=== PATIENT | male | born 1955 | race Caucasian/White ===

== ENCOUNTER 2024-09-30 10:30 | Inpatient (IN) | payer MEDICARE, BC, OTHER, SELFPAY ==
[2024-09-29] VITALS (10 sets, daily range): BP systolic 97–172; BP diastolic 67–128; BMI 23.7; BMI 25.4
--- NOTE | 2024-09-29 13:36 | ED.GENMED ---
History of Present Illness
General
Chief Complaint: Dizziness
Source: patient and spouse
Exam Limitations: none
Time Seen by Provider: 09/29/24 13:14
Nursing documentation reviewed up to this point in time: agreed with
History of Present Illness
History of Present Illness:
Note:
CHIEF COMPLAINT(S)
Frequent falls and lightheadedness
HISTORY OF PRESENT ILLNESS
The patient is a 69-year-old male with a history of Parkinsons disease who presented after experiencing a fall this morning. The patient reports feeling lightheaded at the time of the fall and indicated that this has been a recurring issue, falling
approximately every other day for the past two to three weeks. He describes episodes of lightheadedness upon standing, noting similar episodes of dizziness when he gets up. The spouse reports the patient fell last night and was found this morning on
the floor with blood around, likely from tripping while lightheaded. No chest pain or difficulty in breathing was noted during these episodes. The patient is on medication for Parkinsons disease, including carbidopa/levodopa, as well as bupropion
and escitalopram for emotional symptoms that have recently been exacerbated.
According to the spouse, the patient was newly diagnosed with high cholesterol and recently consulted his primary care provider. The spouse reports discussions with both a primary care physician and a neurologist who mentioned that his symptoms may
be related to blood pressure changes possibly due to his medication regimen. The family also indicated recent evaluations for an elevated prostate-specific antigen level, although this is considered an outpatient issue.
ADDITIONAL HISTORY OBTAINED FROM SOURCES OTHER THAN THE PATIENT
Per the spouse: The patient has been experiencing lightheadedness for the past few weeks, falling frequently, and has recently had emotional stress leading to a new prescription for escitalopram and bupropion. She reported that he has been managing
these conditions with his current medication regime.
CHRONIC MEDICAL CONDITIONS SIGNIFICANTLY AFFECTING CARE
- Parkinsons Disease
- Newly diagnosed hyperlipidemia
SOCIAL HISTORY
The patient is a retired [employer].
MEDICATIONS
- Carbidopa/Levodopa for Parkinsons Disease
- Bupropion for emotional symptoms
- Escitalopram for emotional symptoms
PHYSICAL EXAM
- General: Abrasion on the right eyebrow
- Head: No cervical spine tenderness observed
- Respiratory: Clear lung sounds bilaterally
- Cardiovascular: No chest wall tenderness noted
- Abdomen: Soft, non-tender, normal bowel sounds
- Neurological: Cranial nerves II through XII intact, full range of motion and normal muscle strength in all extremities
- Integumentary: Abrasion on the left upper buttock, indicative of trauma
PLAN
- Initiate blood tests to assess electrolyte levels and other potential contributing factors
- Conduct a CT scan of the head to assess for any intracranial injury
- Continuous monitoring of blood pressure given lightheadedness and falls
- Evaluate and ensure current medication regimen does not exacerbate symptoms
- Follow-up with the neurologist and primary care physician as needed
DIFFERENTIAL DIAGNOSIS
The Differential Diagnosis includes, in no particular order and is not limited to:
1. Orthostatic hypotension
2. Adverse effects of medications
3. Vestibular dysfunction
4. Cardiac arrhythmia
5. Syncope
6. Cerebrovascular accident
7. Neuropathy related to Parkinsons Disease
8. Dehydration
9. Prostate complications affecting systemic health
10. Emotional or psychological factors contributing to physical symptoms
Phy Exam
Physical Exam
Physical Exam:
.
Course
Orders/Labs/Results
Orders:
Orders
09/29/24 Breakfast
Regular
At Your Request: Full Participation
09/29/24 12:31
Electrocardiogram (*1) Urgent
Reason for Study: Chest Pain
EKG- Treatment ONCE
09/29/24 13:15
Interrogate Pacemaker- Treatment ONCE
09/29/24 13:51
CT Head W/o Iv Contrast Urgent
Comment:
Reason For Exam: fall, hit head
Cardiac Monitoring- Treatment ONCE
IV Insert/Care/Rem.- Treatment PRN
09/29/24 13:58
Complete Blood Count/With Diff Urgent
Comprehensive Metabolic Panel Urgent
09/29/24 17:24
OT Consult [Ot Eval And Treat] Urgent
Pt Eval And Treat Urgent
Activity Level: With Assistance
09/29/24 17:34
Urinalysis Reflex To Culture Urgent
Date Specimen was Collected: 09/29/24
Time Specimen was Collected: 17:25
Urine Microscopic Reflex Cult Urgent
09/29/24 17:40
Admit/Transfer Patient As Directed
Co-Sign Provider:
Level of Care: Observation services
Assign to:: Medical/Surgical
Physician / Group: andreina cintron
Diagnosis: fraquent fall
PRN Pain Medication Management As Directed
May give lesser potent ordered pain med per pt: Yes
preference::
Protocol:: Medication orders for pain may be administered in a
manner that supports deferring to patient preference
when the pt is:
- Requesting an ordered lesser potent pain medication.
Least to most potent pain medications are defined
as: acetaminophen < NSAID < tramadol < opioids
(morphine, oxycodone, hydromorphone).
- Requesting a lesser dose of the same medication IF
ORDERED.
- Requesting a less intrusive route of administration
if both routes are prescribed by the provider (PO <
IV).
09/29/24 17:41
Code Status As Directed
Resuscitation Status: Full Code
09/29/24 19:07
Acetaminophen [Tylenol] 650 mg PO Q4HPRN PRN
Bisacodyl [Dulcolax] 10 mg RECTAL [id number] PRN
Docusate W/Senna [Senokot-S] 1 tablet PO BIDPRN PRN
Enoxaparin Sodium [Lovenox] 40 mg SC QPM
Polyethylene Glycol Powder [Miralax] 17 grams PO DAILYPRN PRN
09/29/24 19:07
Activity As Directed
Activity Level: As Tolerated
Orthostatic Vital Signs As Directed
Orthostatic VS Frequency: Daily
Vital Signs As Directed
Frequency: Per unit guidelines
DX Deep Vein Thrombosis Video Routine
09/29/24 20:00
Bupropion(24Hr)Extended Releas [WELLBUTRIN XL (24 hour extended release)] 150 mg PO BID
Flush (0.9% Sodium Chloride) [Flush (Nss)] See Dose Instructions IV PER PROTOCOL
Modafinil [Provigil] 100 mg PO QPM
09/29/24 22:00
Carbidopa/Levodopa Cr [Sinemet Cr 50/200 (Extended Release)] 1.5 tablet PO HS
cmkvzjhno-javzvbrx-eyzaiybpev See Dose Instructions PO TID@1000,1300,2200
09/30/24 08:00
Escitalopram Oxalate [Lexapro] 10 mg PO DAILY
Modafinil [Provigil] 200 mg PO DAILY
Modafinil [Provigil] 200 mg PO DAILY
09/30/24 10:28
Speech Therapy Eval & Treat Routine
09/30/24 10:29
Abdominal Binder As Directed
Teds [Anti-embolism (SAMARA) Hose] As Directed
Type: Thigh high
09/30/24 10:30
0.9% Sodium Chloride 500 ml [Nss] 500 ml IV BOLUS
09/30/24 15:00
Modafinil [Provigil] 100 mg PO DAILY@1500
Modafinil [Provigil] 200 mg PO DAILY
Abnormal Lab Results
09/29/24 09/29/24
13:58 17:34
RBC 4.41 L 10^6/uL
(4.70-6.10)
MCH 32.7 H pg
(27.0-31.0)
MPV 10.5 H fL
(7.4-10.4)
Absolute Neuts (auto) 7.1 H 10^3/uL
(1.4-6.5)
Absolute Monos (auto) 0.9 H 10^3/uL
(0.1-0.6)
Lymphocytes % 19.6 L %
(20.5-51.1)
Chloride 112 H mmol/L
(98-107)
BUN 35 H mg/dl
(9-20)
Glucose 128 H mg/dl
(70-99)
Alkaline Phosphatase 134 H U/L
(38-126)
Urine Ketones 1+ A
(Negative)
Ur Occult Blood Reflex 2+ A
(Negative)
Urine Bacteria (Reflex) Few A
(Negative)
Urine Albumin (Reflex) 1+ A
(Neg - Trace)
09/29/24 13:58
09/29/24 13:58
Vital Signs
Initial and Last Documented VS:
Initial Vital Signs
Temp Pulse Resp BP Pulse Ox
98.3 F 88 20 97/67 95
09/29/24 12:26 09/29/24 12:26 09/29/24 12:26 09/29/24 12:26 09/29/24 12:26
Last Documented Vital Signs
Temp Pulse Resp BP Pulse Ox
97.4 F 77 16 136/81 97
10/03/24 07:30 10/03/24 07:30 10/03/24 07:30 10/03/24 08:25 10/03/24 07:30
*Radiology
Radiology exam reviewed: radiology read reviewed (CT head no acute findings)
*Pulse Oximetry
Patient hypoxic: no (95 % Room air)
*EKG
Interpreted by ED Provider?: Yes
EKG Intrepretation Date: 09/29/24
EKG Intrepretation Time: 12:33
Interpretation: abnormal
Heart Rate: 86
Rate: normal
Rhythm: sinus
Minco: left axis deviation
Interval: normal interval
QRS Pattern: normal QRS
Ischemia: no ischemia
*Design Assembler Interpretation
Rate: normal
Interpretation: normal
Heart Rate: 85
Rhythm: sinus
*Critical Care Note
Total Time (30-74mins, 75-104mins- exclusive of procedures): Not Applicable
Patient Management
Social determinants of health affecting care: Living situation
Discussion with other providers: Hospitalist
Escalation/DeEscalation of care consider admission/obs:
Admit indicated
ED Attending Note
-
Portions of this chart may have been created with voice recognition software.� Occasional wrong word or��sound alike� substitutions may have occurred due to the inherent limitations of voice recognition software.
Discharge Plan
Departure
Patient Disposition: Admit
Date of Disposition: 09/29/24
Time of Disposition: 17:24
Admit to doctor: Leyda
Presentation/result/management discussed w/ accepting MD/DO: Hospitalist
Patient with high blood pressure during this ER visit?: Yes
Condition: Fair
Discharge Problem:
Weakness, Falls frequently
Interventions
Interventions:
*Risk Screen - Suicide Last Done: 09/29/24 12:26
*General Assessment Last Done: 09/29/24 12:26
*Neglect/Abuse Screening Last Done: 09/29/24 12:26
*ED- Fall Risk Assessment Last Done: 09/29/24 13:49
*ED COVID-19 Vaccine History Last Done: 09/29/24 19:39
*Nursing Disposition Last Done: 09/29/24 18:22
ED- Neurological Assessment Last Done: 09/29/24 13:49
ED- Cardiac Assessment Last Done: 09/29/24 13:49
ED Swallowing Screen Last Done: 09/29/24 13:49
Discharge Date and Time
Discharge Date/Time: 09/29/24 18:45
[2024-09-29 14:05] LABS: % Basophils 0.6 % (0-2); % Eosinophils 0.8 % (0-6); % Immature Granulocytes 0.3 % (0-0.5); % Lymphocytes 19.6 % (20.5-51.1); % Monocytes 8.7 % (1.7-9.3); Absolute Basophils 0.1 10^3/uL (0-0.2); Absolute Eosinophils 0.1 10^3/uL (0-0.7); Absolute Monocytes 0.9 10^3/uL (0.1-0.6); Absolute Neutrophils 7.1 10^3/uL (1.4-6.5); Hematocrit 40.5 % (39.0-52.0); Hemoglobin 14.4 g/dL (13.0-18.0); Mean Corp Hgb Conc. 35.6 g/dL (33.0-37.0); Mean Corpuscular Hgb 32.7 pg (27.0-31.0); Mean Corpuscular Volume 91.8 fL (80.0-94.0); Mean Platelet Volume 10.5 fL (7.4-10.4); Nucleated Red Blood Cells % 0 % (-); Platelet Count 207 10^3/uL (130-400); Red Blood Cell Count 4.41 10^6/uL (4.70-6.10); Red Cell Dist. Width 12.5 % (11.5-14.5); White Blood Cell Count 10.2 10^3/uL (4.8-10.8)
[2024-09-29 14:34] LABS: ALT (SGPT) < 10 U/L (0-50); AST (SGOT) 17 U/L (17-59); Albumin 3.8 g/dl (3.5-5.0); Alkaline Phosphatase 134 U/L (38-126); Blood Urea Nitrogen 35 mg/dl (9-20); Calcium 8.8 mg/dl (8.4-10.2); Carbon Dioxide 26 mmol/L (22-30); Chloride 112 mmol/L (98-107); Estimated Creatinine Clearance 57 ml/min; Glucose 128 mg/dl (70-99); Potassium 4.4 mmol/L (3.5-5.1); Sodium 142 mmol/L (135-145); Total Bilirubin 0.5 mg/dl (0.2-1.3); Total Protein 6.5 g/dl (6.3-8.2); eGFR > 60.00
--- NOTE | 2024-09-29 17:26 | HPS.HSE ---
Family Physician
-
Family Physician: Amy Medina MD
Chief Complaint
-
frquent falls
History of Present Illness
69-year-old male with a history of Parkinson disease, HLD, pre DM who presented after experiencing a fall overnight in the bathroom. he has fallen 4 times in the past three weeks. he gets up and takes two steps, he feels lightheaded and falls.
denied chest pain or difficulty in breathing. denied abdominal pain,n,v,d. denied dysuria or hematuria.
his contacted his neurology at [facility], who recommended to check his orthostatics at home.
Medical History
Past Medical History
Past Medical History: Reports Other
Additional Past Medical History:
Hyperlipidemia, Parkinson's, prediabetes
Past Surgical History: Reports Other
Additional Past Surgical History:
Right knee ACL repair, right thumb surgery
Social History
Tobacco: Non-smoker
Alcohol: None
Drug: None
Personal:
Living: With Family
Family History
Family History: Not pertinent
Allergies / Home Medications
Allergies reflects when Allergies were last updated in [facility].
Home Medications with original date entered in [facility]
Allergy/Medication List:
Allergies
Allergy/AdvReac Type Severity Reaction Status Date / Time
No Known Allergies Allergy Verified 09/29/24 12:31
Home Medications
ascorbic acid (vitamin C) 500 mg tablet (Vitamin C) 500 mg PO DAILY 09/29/24
bupropion HCl 150 mg 24 hr tablet, extended release (Wellbutrin XL) 150 mg PO BID 09/29/24
carbidopa 37.5 mg-levodopa 150 mg-entacapone 200 mg tablet 1 tab PO TID 09/29/24
carbidopa ER 50 mg-levodopa 200 mg tablet,extended release 1.5 tab PO HS 09/29/24
cholecalciferol (vitamin D3) 10 mcg (400 unit) tablet (Vitamin D3) 10 mcg PO DAILY 09/29/24
coQ10 (ubiquinol) 100 mg capsule 300 mg PO DAILY 09/29/24
cyanocobalamin (vitamin B-12) 1,000 mcg tablet 1,000 mcg PO DAILY 09/29/24
escitalopram oxalate 10 mg tablet (Lexapro) 10 mg PO DAILY 09/29/24
modafinil 100 mg tablet 100 mg PO QPM 09/29/24
modafinil 200 mg tablet 200 mg PO DAILY 09/29/24
oregano oil 1,500 mg capsule 200 mg PO DAILY 09/29/24
therapeutic multivitamin 1 tab PO DAILY 09/29/24
Review of Systems
-
Constitutional: Reports No Symptoms
EENT: Reports No Symptoms
Respiratory: Reports No Symptoms
Cardiac: Reports No Symptoms
Abdomen/GI: Reports No Symptoms
: Reports No Symptoms
Musculoskeletal: Reports No Symptoms
Skin: Reports No Symptoms
Neurological: Reports Other (Lightheaded)
Endocrine: Reports No Symptoms
Hematologic/Lymphatic: Reports No Symptoms
Psych: Reports No Symptoms
Physical Exam
Vital Signs
Vital Signs
Temp Pulse Resp BP Pulse Ox
98.3 F 81 17 161/96 96
09/29/24 12:26 09/29/24 16:45 09/29/24 16:45 09/29/24 16:08 09/29/24 16:45
Physical Exam
General: Well Developed, Well Nourished and No Apparent Distress
HEENT: NormoCephalic, Moist mucous membranes and Atraumatic
Respiratory: Clear
Cardiac: S1/S2 and Regular Rhythm; No Murmur or Rub
GI: Soft, Non Tender, Non Distended and Normal Bowel Sounds; No Organomegaly
Rectal: Deferred by Provider
Musculoskeletal: No Clubbing, No Cyanosis and No Edema
Skin: No Rash
Neuro: AO x 3 and Nonfocal/grossly intact
Psych: Calm
Laboratory Results
-
09/29/24 13:58
09/29/24 13:58
Laboratory Results
Total Bilirubin 0.5 mg/dl (0.2-1.3) 09/29/24 13:58
AST 17 U/L (17-59) 09/29/24 13:58
ALT < 10 U/L (0-50) 09/29/24 13:58
Alkaline Phosphatase 134 U/L (38-126) H 09/29/24 13:58
Data Reviewed
-
CT Scan: Report Reviewed by me
Lab Data: Labs Reviewed by me
Impression/Plan
-
# Generalized weakness/frequent falls likely from orthostatic hypotension
# History of Parkinson disease
- PT consulted
- CT head negative
- Obtain orthostatics
- Carbidopa levodopa continued
# Depression
- Wellbutrin Lexapro, modafinil Continued
# DVT prophylaxis
- Lovenox
# CODE STATUS
- Full code
[2024-09-29 17:40] LABS: Urine Albumin 1+ (Neg - Trace); Urine Bilirubin Negative (Negative); Urine Character Clear (Clear); Urine Color Yellow; Urine Glucose Negative (Negative); Urine Ketone 1+ (Negative); Urine Leukocyte Negative (Negative); Urine Nitrite Negative (Negative); Urine Occult Blood 2+ (Negative); Urine Specific Gravity 1.025 (<1.030); Urine Urobilinogen Negative (Neg - 1+)
[2024-09-29 17:53] LABS: Urine Calcium Oxalate Crystals Present; Urine Squamous Cell 0-2 /LPF (Few)
[2024-09-29 17:54] LABS: Urine Hyaline Cast 0-2 /LPF (0-2); Urine Red Blood Cell 0-2 /HPF (0-2)
[2024-09-29 17:55] LABS: Urine Bacteria Few (Negative)
--- NOTE | 2024-09-29 17:57 | W.PN.UPDATE ---
Update Note
Progress Note Update
This note serves as an addendum to the H&P by link trainer mechanic CLIFFORD
Kimberly LOPEZ
HPI
69M Non smoker with a history of Parkinson disease, HLD, pre DM who presented after experiencing a fall overnight in the bathroom. Reports fallen 4 times in the past three weeks. he gets up and takes two steps, he feels lightheaded and falls
Reviewed VS:
Vital Signs
Temp Pulse Resp BP Pulse Ox
98.3 F 82 17 161/96 94
09/29/24 12:26 09/29/24 17:36 09/29/24 17:36 09/29/24 16:08 09/29/24 17:36
PE
Gen: No Apparent Distress
HEENT: anictaeric
Neck: supple
Lungs: CTA
Cor: S1/S2 and Regular Rhythm;
Abdomen: Soft, Non Tender, Non Distended
C JAVA DEVELOPER: AO x 3 and Nonfocal/grossly intact
MS: no edema
Psych:calm
Abnormal Lab Results
09/29/24 09/29/24
13:58 17:34
RBC 4.41 L
MCH 32.7 H
MPV 10.5 H
Absolute Neuts (auto) 7.1 H
Absolute Monos (auto) 0.9 H
Lymphocytes % 19.6 L
Chloride 112 H
BUN 35 H
Glucose 128 H
Alkaline Phosphatase 134 H
Urine Ketones 1+ A
Ur Occult Blood Reflex 2+ A
Urine Bacteria (Reflex) Few A
Urine Albumin (Reflex) 1+ A
HCT
No acute intracranial abnormality noted.
ASSESSMENT & PLAN
Generalized weakness with frequent falls
Parkinson disease with chr gait dysfunction ? Denied walker or cane use
- Eval for Postural hypotension ? autonomic neuropathy of PKDz
- Obtain orthostatics VSS
- Carbidopa levodopa continued
- PT/OT
Depression
- Wellbutrin Lexapro, modafinil Continued
DVT Px: LMWH
Code: Full code
OBS MS
[2024-09-29] MEDS: SINEMET CR 50/200 (EXTENDED RELEASE) 1.5 TABLET PO (21:07)
[2024-09-29] MEDS: NON-FORMULARY ITEM 1 TABLET PO (21:08)
[2024-09-29] MEDS: WELLBUTRIN XL (24 hour extended release) 150 MG PO (21:13)
[2024-09-29] MEDS: LOVENOX 40 MG SC (21:13)
--- NOTE | 2024-09-30 02:46 | PTCARENOTE ---
Pt admitted from ER. Pt AAOx3, forgetful at times. No pain reported. Pt afebrile, VSS. No N/V reported. Good appetite. Bed alarm in place due to recent falls. Bed in lowest position and call oconnor within reach.
--- NOTE | 2024-09-30 05:09 | PTCARENOTE ---
Oral care was not performed on patient because they stated that it was their preference to brush teeth in the morning.
[2024-09-30 05:47] VITALS: BP 117/74; BP 147/93; BP 82/53; PULSE 73; PULSE 77; PULSE 78
[2024-09-30 07:00] VITALS: BP 158/89
[2024-09-30] MEDS: WELLBUTRIN XL (24 hour extended release) 150 MG PO ×2 (07:31→20:22)
[2024-09-30] MEDS: PROVIGIL 200 MG PO (07:31)
--- NOTE | 2024-09-30 08:10 | W.PN.HOSP.TC ---
Today's Communication/Plan
-
PT/OT
trial IVF
abd binder, TEDs
monitor orthostatic vitals
discharge planning SNF rehab
Assessment / Plan
Assessment / Plan
Physical Exam
General: No acute distress, appears comfortable
HEENT: NormoCephalic, Moist mucous membranes and Atraumatic
Respiratory: Clear
Cardiac: S1/S2 and Regular Rhythm; No Murmur or Rub
GI: Soft, Non Tender, Non Distended and Normal Bowel Sounds; No Organomegaly
Musculoskeletal: No Clubbing, No Cyanosis and No Edema
Skin: No Rash
Neuro: AO x 3, some difficulty understanding speech d/t mumbling but conversant coherent, no significant rigidity noted upper ext's
Psych: Calm
69M Parkinson HLD prediabetes here for evaluation falls found to have severe symptomatic orthostatic hypotension.
# Generalized weakness/frequent falls likely d/t severe symptomatic orthostatic hypotension
# History of Parkinson disease follows Dr Selene Goodwin at [facility] [phone]
- PT/OT consult appreciated SNF rehab
- CT head negative
- Significant orthostatic hypotension systolic 140s dropping to 60s on standing, recovers with rest
- trial IVF possible dehydration contributing to orthostatic
- Abd binder, TEDS
- cont home Parkinson medications
# Depression
#Excessive day time sleepiness 2/2 Parkinson
- Wellbutrin Lexapro, modafinil Continued
#HLD
recently prescribed statin, unsure which
resume when medication is clarified, patient own med not available on hospital formulary
# DVT prophylaxis
- Lovenox
PT/OT appreciated SNF rehab
# CODE STATUS
- Full code
discussed with patient and patient's Annetta
I spent a total of 45 minutes with the patient or on the floor. More than 50% of this time involved counseling and coordination of care.
Anticipated Discharge: Within 24 hours
Subjective/Interval History
-
Date of Service: September 30, 2024
No acute distress, sitting up comfortably in chair. Noted significant symptomatic Orthostatic hypotension as noted by PT/OT systolic 140s supine dropping to systolic 60s on standing. AOx3 conversant and coherent though speech can be difficult to
understand at times, mumbling.
Objective Data
-
Vital Signs:
Vital Signs
Temp Pulse Resp BP Pulse Ox
98.2 F 82 18 157/99 96
09/29/24 23:00 09/29/24 23:00 09/29/24 23:00 09/29/24 23:00 09/29/24 23:00
I&O
09/29/24 09/30/24 10/01/24
06:59 06:59 06:59
Intake Total 240 / 240
Output Total 700 / 700
Balance -460 / -460
[2024-09-30 09:24] VITALS: BP 112/70; BP 148/85; BP 68/46; BP 82/52; PULSE 89; PULSE 94; PULSE 98; O2SAT 95
[2024-09-30 09:25] VITALS: BP 112/70; BP 148/85; BP 68/46; BP 82/52; PULSE 90; PULSE 94; PULSE 98; O2SAT 95
[2024-09-30] MEDS: NON-FORMULARY ITEM 1 TABLET PO ×3 (10:40→22:05)
[2024-09-30] MEDS: NSS 500 IV (10:41)
--- NOTE | 2024-09-30 11:04 | CM ---
Addendum entered by Ashley Tristan 09/30/24 15:39:
LOC change to inpatient - IMM explained & signed. In chart
PT rec SNF
Reviewed options of SNF with Annetta, gave care compare medicare.gov list
Would like referral for [facility] SNF - will provide other options after reviewing list
Original Note:
Patient seen at bedside
IA completed
OBS status - form explained to patient-refused to sign
DX: Frequent falls
PMH: history of Parkinson disease, HLD, pre DM
Lives in condo with , elevator
PLOF: independent with cane
DME: Walker, cane
foot brace at home for R foot
States had [facility] in past, Rehab in past and does not recall name
PT eval rec SNF
tt [facility] if patient qualifies for MSSP waiver
no preauth-Medicare
Denies insecurities
PCP: Amy Medina
Pharmacy: [facility]
PLAN: SNF when medically stable
[2024-09-30] MEDS: LR 1000 IV (11:28)
--- NOTE | 2024-09-30 13:43 | PTOTSP ---
Dysphagia Evaluation
Patient with reports of inconsistent dysphagia signs related to Parkinson's disease (see patient care note). No significant signs of dysphagia, aspiration, or complications from dysphagia/aspiration present at this time.
Patient with mild-moderate dysarthria and at least mild dysphonia and would benefit from outpatient LSVT LOUD.
Recommend:
1. IDDSI Level 7 Regular, Thin
2. Medications as best tolerated
3. Strategies: upright to 90 degrees, small sips/bites, slow rate
4. Outpatient C WINFORMS DEVELOPER follow up for voice therapy/support related to Parkinson's.
[2024-09-30 15:00] VITALS: BP 164/93
[2024-09-30] MEDS: PROVIGIL 100 MG PO (15:07)
[2024-09-30] MEDS: LOVENOX 40 MG SC (17:33)
--- NOTE | 2024-09-30 17:51 | PTCARENOTE ---
Addendum entered by Shanelle Schuster RN 09/30/24 17:52:
pt noted to be different in the labs computer. this nurse checked with admissions and is correct on our end. this nurse called the lab and asked to have corrected to eliminated frequent errors. Lab staff said they would work on
correcting in their system
Original Note:
pt visited at the bedside today. notes that she will bring mixer operator hot metal for Deep Brain Stimulator tomorrow and charge during her visit
[2024-09-30] MEDS: SINEMET CR 50/200 (EXTENDED RELEASE) 1.5 TABLET PO (22:07)
[2024-09-30 23:24] VITALS: BP 171/100
[2024-10-01 06:41] LABS: Hematocrit 44.4 % (39.0-52.0); Hemoglobin 15.7 g/dL (13.0-18.0); Mean Corp Hgb Conc. 35.4 g/dL (33.0-37.0); Mean Corpuscular Hgb 31.8 pg (27.0-31.0); Mean Corpuscular Volume 90.1 fL (80.0-94.0); Mean Platelet Volume 10.3 fL (7.4-10.4); Platelet Count 197 10^3/uL (130-400); Red Blood Cell Count 4.93 10^6/uL (4.70-6.10); Red Cell Dist. Width 12.3 % (11.5-14.5); White Blood Cell Count 8.5 10^3/uL (4.8-10.8)
[2024-10-01 07:00] VITALS: BP 144/90
--- NOTE | 2024-10-01 07:05 | W.PN.HOSP.TC ---
Today's Communication/Plan
-
see a/p
Assessment / Plan
Assessment / Plan
Physical Exam
General: No acute distress, appears comfortable
HEENT: NormoCephalic, Moist mucous membranes and Atraumatic
Respiratory: Clear
Cardiac: S1/S2 and Regular Rhythm; No Murmur or Rub
GI: Soft, Non Tender, Non Distended and Normal Bowel Sounds; No Organomegaly
Musculoskeletal: No Clubbing, No Cyanosis and No Edema
Skin: No Rash
Neuro: AO x 3, some difficulty understanding speech d/t mumbling but conversant coherent, no significant rigidity noted upper ext's
Psych: Calm
69M Parkinson HLD prediabetes here for evaluation falls found to have severe symptomatic orthostatic hypotension.
# Generalized weakness/frequent falls likely d/t severe symptomatic orthostatic hypotension
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
# History of Parkinson disease follows Dr Selene Goodwin at [facility] [phone]
- PT/OT consult appreciated SNF rehab
- CT head negative
- Significant orthostatic hypotension systolic 140s dropping to 60s on standing, recovers with rest
- trial IVF possible dehydration contributing to orthostatic, however no significant improvement noted
- Abd binder, TEDS
- cont home Parkinson medications
- Patient ok to use own deep brain stimulator device
# Depression
#Excessive day time sleepiness 2/2 Parkinson
- Wellbutrin Lexapro, modafinil Continued
#HLD
Home rosuvastatin resumed
# DVT prophylaxis
- Lovenox
PT/OT appreciated SNF rehab
# CODE STATUS
- Full code
Medically stable for discharge SNF rehab, accepted [facility], bed available Sun 10/03
discussed with patient and patient's Annetta
I spent a total of 40 minutes with the patient or on the floor. More than 50% of this time involved counseling and coordination of care.
Anticipated Discharge: 24 - 48 hours
Subjective/Interval History
-
Date of Service: October 01, 2024
Objective Data
-
Labs:
Laboratory Results
10/01/24
06:25
WBC 8.5
Hgb 15.7
Hct 44.4
Plt Count 197
Sodium Pending
Potassium Pending
Chloride Pending
Carbon Dioxide Pending
BUN Pending
Creatinine Pending
Glucose Pending
Calcium Pending
Vital Signs:
Vital Signs
Temp Pulse Resp BP Pulse Ox
98.1 F 83 16 171/100 94
09/30/24 23:24 09/30/24 23:24 09/30/24 23:24 09/30/24 23:24 09/30/24 23:24
I&O
09/30/24 10/01/24 10/02/24
06:59 06:59 06:59
Intake Total 240 / 240 240 / 240
Output Total 700 / 700 600 / 600
Balance -460 / -460 -360 / -360
[2024-10-01 07:16] LABS: Blood Urea Nitrogen 24 mg/dl (9-20); Calcium 9.2 mg/dl (8.4-10.2); Carbon Dioxide 30 mmol/L (22-30); Chloride 108 mmol/L (98-107); Estimated Creatinine Clearance 74 ml/min; Glucose 96 mg/dl (70-99); Magnesium 1.7 mg/dl (1.6-2.3); Phosphorus 3.7 mg/dl (2.5-4.5); Sodium 143 mmol/L (135-145); eGFR > 60.00
[2024-10-01 07:46] LABS: Cortisol, Random 5.7 ug/dl; TSH Reflex To Free T4 4.43 uIU/ml (0.47-4.68)
[2024-10-01] MEDS: PROVIGIL 200 MG PO (08:21)
[2024-10-01] MEDS: WELLBUTRIN XL (24 hour extended release) PO (08:21)
[2024-10-01 09:23] VITALS: BP 100/61; BP 147/87; BP 76/45; PULSE 86; PULSE 88; PULSE 89
[2024-10-01] MEDS: NON-FORMULARY ITEM 1 TABLET PO ×3 (10:09→21:55)
--- NOTE | 2024-10-01 10:10 | CM ---
Addendum entered by Ashley Tristan 10/01/24 14:44:
ambulance transportation forms on chart
Addendum entered by Ashley Tristan 10/01/24 14:36:
Per Inga from [facility], bed available on Tuesday 10/03 & can accept on Friday
TT hospitalist - also will need Covid test 24hr prior to dc
no preauth needed
PLAN: [facility] SNF on Tuesday 10/03
Report #: [id number]
Fax #: [phone]
Original Note:
Patient seen at bedside
PT rec SNF
[facility] referral in [facility]
accepted
no preauth needed
PLAN: SNF, pending bed availability when stable
--- NOTE | 2024-10-01 11:28 | PTCARENOTE ---
patient remains orthostatic with activity denied lightheadedness or dizziness (see orthostatic vital signs documentation at 0923). Dr. Hernandes updated during pt rounds. thigh high teds and binder maintained, will continue to monitor.
[2024-10-01] MEDS: MAGNESIUM SULFATE 50 IV (12:12)
[2024-10-01] MEDS: WELLBUTRIN XL (24 hour extended release) 150 MG PO ×2 (12:13→22:00)
--- NOTE | 2024-10-01 14:27 | PN.CDI ---
CDI
- -
CDI:
Physician Documentation Request
Admit Date: 09/30/24 10:30
Dear Doctor Cecilio,
Patient admitted with severe symptomatic orthostatic hypotension.
09/30 PN, 'History of Parkinson's disease....severe symptomatic orthostatic hypotension.... Significant orthostatic hypotension systolic 140s dropping to 60s on standing, recovers with rest....[facility] [place].'
Please provide in your note the likely diagnosis associated with the above findings:
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
Orthostatic hypotension only
Other
Use of terms such as suspected, likely, concern for, or probable (associated with a specific diagnosis that is being evaluated, monitored, or treated as if it exists) are acceptable and can be coded in the inpatient setting, when documented at the
time of discharge.
Thank you,
Amy BURKN,RN,CCDS
CDI Specialist
available via [facility]
Please use your independent medical judgment in providing your response.
[2024-10-01] MEDS: PROVIGIL 100 MG PO (15:48)
[2024-10-01] MEDS: LOVENOX 40 MG SC (17:36)
--- NOTE | 2024-10-01 19:09 | PTCARENOTE ---
brought in deep brain stimulator device and patient used device independently.
[2024-10-01] MEDS: LEXAPRO 10 MG PO (21:55)
[2024-10-01] MEDS: SINEMET CR 50/200 (EXTENDED RELEASE) 1.5 TABLET PO (21:56)
[2024-10-02 00:04] VITALS: BP 152/96
[2024-10-02] MEDS: PROVIGIL 200 MG PO (07:06)
[2024-10-02] MEDS: CRESTOR 5 MG PO (07:06)
--- NOTE | 2024-10-02 07:07 | W.PN.HOSP.TC ---
Today's Communication/Plan
-
cont PT/OT
daily assisted ambulations
discharge planning SNF rehab tomorrow.
Assessment / Plan
Assessment / Plan
Physical Exam
General: No acute distress, appears comfortable
HEENT: NormoCephalic, Moist mucous membranes and Atraumatic
Respiratory: Clear
Cardiac: S1/S2 and Regular Rhythm; No Murmur or Rub
GI: Soft, Non Tender, Non Distended and Normal Bowel Sounds; No Organomegaly
Musculoskeletal: No Clubbing, No Cyanosis and No Edema
Skin: No Rash
Neuro: AO x 3, some difficulty understanding speech d/t mumbling but conversant coherent, no significant rigidity noted upper ext's
Psych: Calm
69M Parkinson HLD prediabetes here for evaluation falls found to have severe symptomatic orthostatic hypotension.
# Generalized weakness/frequent falls likely d/t severe symptomatic orthostatic hypotension
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
# History of Parkinson disease follows Dr Selene Goodwin at [place] [phone]
- PT/OT consult appreciated SNF rehab
- CT head negative
- Significant orthostatic hypotension systolic 140s dropping to 60s on standing, recovers with rest
- trial IVF possible dehydration contributing to orthostatic, however no significant improvement noted
- Abd binder, TEDS
- cont home Parkinson medications
- Patient ok to use own deep brain stimulator device
- attempting trial low dose midodrine 2.5 mg TID w/ holding parameters SBP>140
# Depression
#Excessive day time sleepiness 2/2 Parkinson
- Wellbutrin Lexapro, modafinil Continued
#HLD
Home rosuvastatin resumed
# DVT prophylaxis
- Lovenox
PT/OT appreciated SNF rehab
# CODE STATUS
- Full code
Medically stable for discharge SNF rehab, accepted [facility], bed available Sun 10/03
discussed with patient and patient's Annetta
I spent a total of 40 minutes with the patient or on the floor. More than 50% of this time involved counseling and coordination of care.
Anticipated Discharge: Within 24 hours
Subjective/Interval History
-
Date of Service: October 02, 2024
No acute distress. Appears comfortable sitting up in chair. Overall reports feeling well. Denies new acute issues at this time.
Objective Data
-
Vital Signs:
Vital Signs
Temp Pulse Resp BP Pulse Ox
98.0 F 87 20 152/96 96
10/01/24 23:10 10/01/24 23:10 10/01/24 23:10 10/02/24 00:04 10/01/24 23:10
I&O
10/01/24 10/02/24 10/03/24
06:59 06:59 06:59
Intake Total 240 / 240 1010 / 1010
Output Total 600 / 600 2550 / 2550
Balance -360 / -360 -1540 / -1540
[2024-10-02 07:15] VITALS: BP 114/73
[2024-10-02] MEDS: NON-FORMULARY ITEM 1 TABLET PO ×3 (09:45→21:35)
[2024-10-02 10:35] LABS: COVID-19 Antigen Negative (Negative)
[2024-10-02] MEDS: WELLBUTRIN XL (24 hour extended release) 150 MG PO ×2 (11:16→21:37)
--- NOTE | 2024-10-02 13:15 | PTCARENOTE ---
pt and pt wanted pt to get up and ambulate. while sitting in the chair with abdominal binder and thigh high teds BP 126/80 HR 77.
pt stood at walker BP dropped to 88/60 hr 77
pt ambulated from chair in room out to hallway and back to chair, standing at chair BP 75/48 HR 77
pt seated in recliner with legs up bp returned to 131/79 HR 87
-pt remained asymptomatic throughout
-pt notes that he 'sees dust bunnies on the floor' this has been going on for a while now, senior billing consultant and neurologist aware of symptoms prior to admission
[2024-10-02] MEDS: ProAmatine 2.5 MG PO (13:39)
[2024-10-02] MEDS: PROVIGIL 100 MG PO (15:19)
[2024-10-02 15:30] VITALS: BP 165/101
[2024-10-02 15:34] VITALS: BP 113/66; BP 121/63; BP 166/100; PULSE 84
[2024-10-02] MEDS: LOVENOX 40 MG SC (17:13)
[2024-10-02] MEDS: ProAmatine PO (17:14)
[2024-10-02] MEDS: SINEMET CR 50/200 (EXTENDED RELEASE) 1.5 TABLET PO (21:36)
[2024-10-02] MEDS: LEXAPRO 10 MG PO (21:36)
[2024-10-03 00:48] VITALS: BP 157/94
[2024-10-03 07:30] VITALS: BP 136/81
[2024-10-03] MEDS: CRESTOR 5 MG PO (08:24)
[2024-10-03] MEDS: PROVIGIL 200 MG PO (08:24)
--- NOTE | 2024-10-03 08:24 | W.PN.HOSP.TC ---
Today's Communication/Plan
-
PT/OT
abd binder, TEDS
midodrine with holding parameters
cont monitoring orthostatics, blood pressure
discharge planning SNF rehab
Assessment / Plan
Assessment / Plan
Physical Exam
General: No acute distress, appears comfortable
HEENT: NormoCephalic, Moist mucous membranes and Atraumatic
Respiratory: Clear
Cardiac: S1/S2 and Regular Rhythm; No Murmur or Rub
GI: Soft, Non Tender, Non Distended and Normal Bowel Sounds; No Organomegaly
Musculoskeletal: No Clubbing, No Cyanosis and No Edema
Skin: No Rash
Neuro: AO x 3, some difficulty understanding speech d/t mumbling but conversant coherent, some rigidity tremors noted upper ext's
Psych: Calm
69M Parkinson HLD prediabetes here for evaluation falls found to have severe symptomatic orthostatic hypotension.
# Generalized weakness/frequent falls likely d/t severe symptomatic orthostatic hypotension
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
# History of Parkinson disease follows Dr Selene Goodwin at [place] [phone]
- PT/OT consult appreciated SNF rehab
- CT head negative
- Initially Significant orthostatic hypotension systolic 140s dropping to 60s or 70s on standing, recovers with rest
- trial IVF possible dehydration contributing to orthostatic, however no significant improvement noted
- Abd binder, TEDS
- cont home Parkinson medications
- Patient ok to use own deep brain stimulator device
- trial low dose midodrine 2.5 mg BID w/ holding parameters SBP>140
- orthostatic hypotension has significantly improved with midodrine (dropping to systolic 90s instead of 60s 70s as above) dosing however limited with resting SBP 140s 150s later in day.
-10/03/24 discharge held d/t patient's concerns regarding blood pressure readings and symptomatic orthostatic hypotension, though orthostatic hypotension noted improved as above
# Depression
#Excessive day time sleepiness 2/2 Parkinson
- Wellbutrin Lexapro, modafinil Continued
#HLD
Home rosuvastatin resumed
# DVT prophylaxis
- Lovenox
PT/OT appreciated SNF rehab
# CODE STATUS
- Full code
discussed with patient and patient's Annetta
I spent a total of 40 minutes with the patient or on the floor. More than 50% of this time involved counseling and coordination of care.
Anticipated Discharge: Within 24 hours
Subjective/Interval History
-
Date of Service: October 03, 2024
No acute distress, sitting up comfortably in chair. Orthostatic hypotension notably improved with morning midodrine (systolic 133/76 dropped to 95/60 on standing- significant improvement from prior blood pressure drops to systolic 60s or 70s).
Dosing midodrine limited with elevated resting pressures systolic 140s or 150s.
Objective Data
-
Vital Signs:
Vital Signs
Temp Pulse Resp BP Pulse Ox
97.4 F 77 16 136/81 97
10/03/24 07:30 10/03/24 07:30 10/03/24 07:30 10/03/24 07:30 10/03/24 07:30
I&O
10/02/24 10/03/24 10/04/24
06:59 06:59 06:59
Intake Total 1010 / 1010 720 / 720
Output Total 2550 / 2550 1750 / 1750
Balance -1540 / -1540 -1030 / -1030
[2024-10-03] MEDS: ProAmatine 2.5 MG PO (08:25)
[2024-10-03 10:17] LABS: COVID-19 Antigen Negative (Negative)
[2024-10-03] MEDS: NON-FORMULARY ITEM 1 TABLET PO ×3 (10:59→21:03)
[2024-10-03] MEDS: WELLBUTRIN XL (24 hour extended release) 150 MG PO ×2 (12:16→21:01)
[2024-10-03 13:00] VITALS: BP 110/70; BP 133/76; BP 95/60; PULSE 100; PULSE 80; PULSE 90
--- NOTE | 2024-10-03 15:27 | PTCARENOTE ---
patient still orthostatic but only dipped to 95/60 with standing. (see orthostatic VS documentation. asymptomatic. able to ambulate with rolling walker to br and get washed up sitting on chair in front of sink, which is an improvement since
Friday. Dr. Hernandes updated and feels patient should be ready for d/c tomorrow. using own deep brain stimulator independently, Ervin hose and abdominal binder maintained as ordered, will continue to monitor.
[2024-10-03] MEDS: PROVIGIL 100 MG PO (15:35)
[2024-10-03 16:00] VITALS: BP 157/98
--- NOTE | 2024-10-03 16:44 | CM ---
Spoke with [facility] pt accepted today .
cancelled dc . Monitoring BP .
Covid done negative.
[facility] requested pt early in day.
IMM reviewed with Annetta.
Medical nec form completed.
[facility]
Report #: [phone]
Fax #: [phone]
PLAN TO [facility] when medically ready
[2024-10-03] MEDS: LOVENOX 40 MG SC (17:07)
[2024-10-03] MEDS: ProAmatine PO (17:10)
--- NOTE | 2024-10-03 18:00 | PTCARENOTE ---
pt ambulated with assist x1 and rolling walker down to room 330 and back to room, will continue to monitor.
[2024-10-03] MEDS: LEXAPRO 10 MG PO (21:01)
[2024-10-03] MEDS: SINEMET CR 50/200 (EXTENDED RELEASE) 1.5 TABLET PO (21:01)
[2024-10-03 23:00] VITALS: BP 150/90
[2024-10-04 07:16] VITALS: BP 118/69
[2024-10-04] MEDS: PROVIGIL 200 MG PO (08:42)
[2024-10-04] MEDS: CRESTOR 5 MG PO (08:42)
[2024-10-04] MEDS: ProAmatine 2.5 MG PO (08:42)
[2024-10-04] MEDS: SINEMET CR 50/200 (EXTENDED RELEASE) PO (09:22)
[2024-10-04] MEDS: NON-FORMULARY ITEM 1 TABLET PO ×2 (09:28→12:17)
--- NOTE | 2024-10-04 09:28 | CM ---
Addendum entered by Ashley Tristan 10/04/24 10:20:
IMM explained & signed. In chart
COVID test negative yesterday
transportation forms on chart
Original Note:
Called [facility] & spoke with Vashti - bed still available today
tt hospitalist
PLAN: [facility]
Report #: [phone]
Fax #: [phone]
[2024-10-04] MEDS: WELLBUTRIN XL (24 hour extended release) 150 MG PO (12:18)
--- NOTE | 2024-10-04 12:35 | PTCARENOTE ---
Lab informed this RN of critical result, sputum respiratory culture 'not acceptable for culture. please repeat in clinically relevant. Many squamous epithelial cells. Moderate mixed bacterial morphotypes. Few WBC'. MD and resident made aware.
--- NOTE | 2024-10-04 12:51 | W.PN.HOSP.TC ---
Today's Communication/Plan
-
dc to SNF
Assessment / Plan
Assessment / Plan
Assessment:
Generalized weakness/frequent falls likely d/t severe symptomatic orthostatic hypotension
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
History of Parkinson disease follows Dr Selene Goodwin at [place] [phone]
- PT/OT consult appreciated SNF rehab
- CT head negative
- Initially Significant orthostatic hypotension systolic 140s dropping to 60s or 70s on standing, recovers with rest
- trial IVF possible dehydration contributing to orthostatic, however no significant improvement noted
- Abd CORA [place]jo
- cont home Parkinson medications
- Patient ok to use own deep brain stimulator device
- continue low dose midodrine 2.5 mg BID w/ holding parameters SBP>140
Depression
Excessive day time sleepiness 2/2 Parkinson
- Wellbutrin Lexapro, modafinil Continued
HLD
- rosuvastatin
DVT ppx: Lovenox
Code: Full
More than 30 minutes spent in discharge including
Final examination of the patient
Summarizing hospital stay
Instructions for continuing care to all relevant caregivers
Preparation of discharge records, prescriptions, and referral forms
Total time spent (in minutes): 41
Anticipated Discharge: Today
Subjective/Interval History
-
Date of Service: October 04, 2024
no complaints at present
Objective Data
-
Vital Signs:
Vital Signs
Temp Pulse Resp BP Pulse Ox
97.8 F 76 17 118/69 96
10/04/24 07:16 10/04/24 08:42 10/04/24 07:16 10/04/24 08:42 10/04/24 07:16
I&O
10/03/24 10/04/24 10/05/24
06:59 06:59 06:59
Intake Total 720 / 720 1240 / 1240
Output Total 1750 / 1750 1550 / 1550
Balance -1030 / -1030 -310 / -310
Physical Exam
-
General: No Apparent Distress
HEENT: Normocephalic and Atraumatic
Respiratory: Negative Wheezes
Cardiac: Regular Rhythm and S1/S2
GI: Soft and Nontender
Genito-urinary: No Costovertebral Tender
Neuro: AO x 3
Psych: Calm
Data Reviewed
-
Total Time Spent with Patient (in minutes): 41
Labs: Labs Reviewed by me
--- NOTE | 2024-10-04 12:56 | W.DS.TRANS ---
DC Summary - [facility]
-
Discharge Instructions:
Discharge Diagnosis/Procedures symptomatic orthostatic hypotension, history of
Parkinsons disease
Diet Regular
Activity As tolerated
Other Services PT,OT
Instructions:
Stand-Alone Forms:
Changes to Home Medications: No
Discharge Medications:
DC Medications w/original date entered in [facility]
ascorbic acid (vitamin C) 500 mg tablet (Vitamin C) 500 mg PO DAILY Supplement 09/29/24
bupropion HCl 150 mg 24 hr tablet, extended release (Wellbutrin XL) 150 mg PO BID Mental Health/Anxiety 09/29/24
carbidopa 37.5 mg-levodopa 150 mg-entacapone 200 mg tablet 1 tab PO TID PARKINSONS 09/29/24
carbidopa ER 50 mg-levodopa 200 mg tablet,extended release 1.5 tab PO HS PARKINSONS 09/29/24
cholecalciferol (vitamin D3) 10 mcg (400 unit) tablet (Vitamin D3) 10 mcg PO DAILY Supplement 09/29/24
coQ10 (ubiquinol) 100 mg capsule 300 mg PO DAILY Supplement 09/29/24
cyanocobalamin (vitamin B-12) 1,000 mcg tablet 1,000 mcg PO DAILY Supplement 09/29/24
escitalopram oxalate 10 mg tablet (Lexapro) 10 mg PO DAILY Mental Health/Anxiety 09/29/24
modafinil 100 mg tablet 100 mg PO QPM MUCK [employer]ER [employer]ING Stimulant 09/29/24
modafinil 200 mg tablet 200 mg PO DAILY MUCK [employer]ER [employer]ING Stimulant 09/29/24
oregano oil 1,500 mg capsule 200 mg PO DAILY Supplement 09/29/24
therapeutic multivitamin 1 tab PO DAILY Supplement 09/29/24
rosuvastatin 5 mg PO DAILY 10/01/24
midodrine 2.5 mg tablet 2.5 mg PO BID@0800,1800 #60 tabs 10/04/24
Home Medication Changes
Pending Results: No
Total time spent discharging patient (in min): 41
[2024-10-04 13:12] VITALS: BP 142/87
[2024-10-04] MEDS: PROVIGIL 100 MG PO (14:01)
[2024-10-04 14:38] VITALS: BP 145/91
== END 2024-10-04 15:12 | DRG 57 ==
LOC: 3 WEST ACU 10:30
PROVIDERS: Emergency Medicine; Internal Medicine; ADMITTING PHYSICIAN Internal Medicine; ATTENDING PHYSICIAN Internal Medicine; EMERGENCY PHYSICIAN Emergency Medicine; FAMILY PHYSICIAN Family Medicine
DX: G20.A1 Parkinson's disease without dyskinesia, without mention of fluctuations (principal); G90.9 Disorder of the autonomic nervous system, unspecified; I95.1 Orthostatic hypotension; F32.A Depression, unspecified; Z79.899 Other long term (current) drug therapy; E78.00 Pure hypercholesterolemia, unspecified; W01.0XXA Fall on same level from slipping, tripping and stumbling without subsequent striking against object, initial encounter; Z11.52 Encounter for screening for COVID-19; R29.6 Repeated falls; R73.03 Prediabetes
CPT/HCPCS: 70450; 80048; 80053; 81003; 81015; 82533; 83735; 84100; 84443; 85025; 85027; 87811; 92610; 93005; 93288; 97116; 97163; 97167; 97530; 97535; 99285

== ENCOUNTER 2024-11-17 13:10 | Emergency (ER) | payer MEDICARE, BC, OTHER, SELFPAY ==
[2024-11-17] VITALS (9 sets, daily range): BP systolic 79–166; BP diastolic 53–94; PULSE 77–85; BMI 24.7
[2024-11-17 13:28] LABS: Hematocrit 43.0 % (39.0-52.0); Hemoglobin 14.7 g/dL (13.0-18.0); Mean Corp Hgb Conc. 34.2 g/dL (33.0-37.0); Mean Corpuscular Volume 93.1 fL (80.0-94.0); Nucleated Red Blood Cells % 0 % (-); Platelet Count 218 10^3/uL (130-400); Red Cell Dist. Width 12.3 % (11.5-14.5)
[2024-11-17 13:45] LABS: ALT (SGPT) 11 U/L (0-50); AST (SGOT) 20 U/L (17-59); Albumin 4.2 g/dl (3.5-5.0); Alkaline Phosphatase 132 U/L (38-126); Blood Urea Nitrogen 23 mg/dl (9-20); Calcium 9.1 mg/dl (8.4-10.2); Carbon Dioxide 28 mmol/L (22-30); Chloride 105 mmol/L (98-107); Glucose 96 mg/dl (70-99); Potassium 4.4 mmol/L (3.5-5.1); Sodium 139 mmol/L (135-145); Total Protein 7.1 g/dl (6.3-8.2); eGFR > 60.00
[2024-11-17] MEDS: NSS 1000 IV (16:47)
[2024-11-17 16:59] LABS: Urine Character Clear (Clear)
[2024-11-17 17:09] LABS: Urine White Cell 0-2 /HPF (0-5)
--- NOTE | 2024-11-17 17:21 | ED.GENMED ---
History of Present Illness
General
Chief Complaint: Fainting/Passed Out
Source: patient and spouse
Exam Limitations: none
Time Seen by Provider: 11/17/24 15:15
Nursing documentation reviewed up to this point in time: agreed with
History of Present Illness
History of Present Illness:
see MDM
Past History
Past History
ED Past Medical History: Other (parkinsons)
Review of Systems
Review of Systems
Allergies reviewed?: Yes
All Other Systems: Not applicable
Phy Exam
Physical Exam
Physical Exam:
GENERAL: Alert , in no apparent distress
HEAD: NCAT
EYE: pupils equal and reactive, no nystagmus, no photophobia
NECK: Supple,full rom, nontender
ENT: o/p clr, mmm.
CARDIAC: Regular rate and rhythm . no edema
LUNGS: Clear breath sounds bilaterally, no acute respiratory distress, no wheezes/rales/rhonchi
ABDOMEN: Soft, without focal tenderness, no r/g, no cvat
NEUROLOGICAL: Alert and orientedx 4, cn intact, no facial asymmetry, 5/5 strength in UE/LE, sensation intact, romberg neg, neg pronator drift; parkinson's speech
resting tremor; some stiffening gait
SKIN: Warm and dry, skin intact.
MUSCULOSKELETAL: No edema, well perfused.
PSYCH: Normal and appropriate interaction.
Course
Orders/Labs/Results
Orders:
Orders
11/17/24 13:11
ECG [Electrocardiogram (*1)] Urgent
Reason for Study: Syncope
EKG- Treatment ONCE
11/17/24 13:20
Complete Blood Count/With Diff Urgent
Comprehensive Metabolic Panel Urgent
11/17/24 16:10
Orthostatic VS- Treatment ONCE
0.9% Sodium Chloride 1000 ml [Nss] 1,000 ml IV BOLUS
11/17/24 16:37
Urinalysis Reflex To Culture Urgent
Date Specimen was Collected: 11/17/24
Time Specimen was Collected: 16:21
Urine Microscopic Reflex Cult Urgent
Urine Culture Urgent
SHAILESH Source: U
Specimen Description:
Date Specimen was Collected: 11/17/24
Time Specimen was Collected: 16:21
11/17/24 17:53
Fosfomycin [Monurol] 3 gm PO ONCE ONE
Abnormal Lab Results
11/17/24 11/17/24
13:20 16:37
RBC 4.62 L 10^6/uL
(4.70-6.10)
MCH 31.8 H pg
(27.0-31.0)
MPV 10.6 H fL
(7.4-10.4)
BUN 23 H mg/dl
(9-20)
Alkaline Phosphatase 132 H U/L
(38-126)
Urine Ketones 1+ A
(Negative)
Ur Occult Blood Reflex 1+ A
(Negative)
Leukocyte Esterase Rfl 1+ A
(Negative)
Urine RBC 3-6 A /HPF
(0-2)
Urine Bacteria (Reflex) Few A
(Negative)
11/17/24 13:20
11/17/24 13:20
Vital Signs
Initial and Last Documented VS:
Initial Vital Signs
Temp Pulse Resp BP Pulse Ox
36.3 C 79 18 107/66 96
11/17/24 13:11 11/17/24 13:11 11/17/24 13:11 11/17/24 13:11 11/17/24 13:11
Last Documented Vital Signs
Temp Pulse Resp BP Pulse Ox
36.3 C 80 18 165/90 95
11/17/24 13:11 11/17/24 18:00 11/17/24 18:00 11/17/24 18:00 11/17/24 18:00
MDM/Problems Addressed
Differential Diagnosis Includes:
see MDM
MDM/Problems Addressed:
Note:
CHIEF COMPLAINT(S)
Nearly passing out and actual episodes of syncope on separate occasions over the last two days.
HISTORY OF PRESENT ILLNESS
The patient is a 69-year-old male with a significant past medical history of orthostatic hypotension and Parkinsons disease, presenting with recent episodes of almost passing out and fainting. Per the spouse, the patient was in the kitchen with his
aide when he suddenly fainted.
pt was standing at the sql report developer and bent down to put some detergent in and when he stood up got lightheaded and promptly passed out but was caught by the aide who hollered for help from spouse.
Prior to this event, the patient experienced another episode of likely syncope while attempting to measure his blood pressure, where he became unresponsive without fully collapsing yesterday
The patient�s blood pressure is noted to have orthostatic changes, with sitting pressures at approximately 116 and a significant drop upon standing, sometimes as low as 80 over 50. These episodes have reportedly been occurring since September 2019, after
which the patient was started on midodrine. He was hospitalized then for around five to six days before being discharged. The patient follows a low sodium diet and wears compression stockings, although he admitted to not always hydrating adequately.
His morning midodrine dose was taken, but the second dose was missed due to being at the hospital during lunchtime, which is typically when he takes the second dose.
Additionally, travel on a hot day to [facility] for a procedure regarding his deep brain stimulation device potentially exacerbated his dehydration. The patient denies any chest pain or shortness of breath before passing out and does not
report any postictal symptoms, indicating the absence of seizure activity during these episodes. The patient also has a long-standing history of Parkinsons disease, diagnosed since age 40, and he is currently on Carbidopa-Levodopa.
PHYSICAL EXAM
- Cardiovascular: Orthostatic hypotension noted. Blood pressure sitting at 116 with a drop while standing.
- Neurological: No focal deficits were reported.
- General: The patient appeared dehydrated.
Nursing notes reviewed and vital signs reviewed.
PLAN
- Continue current medications and monitor blood pressure closely.
- Encourage increased fluid intake to improve hydration status.
- Initiate intravenous (IV) fluids to correct potential dehydration.
- Maintain the current prescription of midodrine and Carbidopa-Levodopa unless advised otherwise by the patients neurologist.
- Plan to send urine for testing to rule out infection.
- The family is instructed about precautions with mobilization to prevent further syncopal episodes.
DIFFERENTIAL DIAGNOSIS
The Differential Diagnosis includes, in no particular order and is not limited to:
1. Orthostatic hypotension
2. Dehydration
3. Medication side effects, possibly from midodrine or Carbidopa-Levodopa
4. Neurocardiogenic syncope
5. Cardiac arrhythmia
6. Seizure disorder
7. Vestibular dysfunction
8. Blood loss anemia
9. Autonomic dysfunction secondary to Parkinson�s disease
10. Electrolyte imbalance
69 y/o M
parkinsons
admitted last month for orthostatic hypoension, pretty significant drop in BP with standing
abd binder and stockings used and has parameters for midodrine
nearly passed out yesterday with standing and then did pass out today after bending over and standing back up
caught by aide, no injury
feels well now
aware he didn't drink many fluids today
his neuro from [facility] is aware of this problem and JUST TODAYrecomemdned to d/c one of the parkinsons meds that causes dizzines swith standing
for now, pt was hydrated since his BUN wsas mildly elevated
and ua is minimally postivie
he has no sypmtoms
will give dose of monurol
feels better with fluids
standing wel
d/c home
*Pulse Oximetry
SaO2: 96
Oxygen Mode of Delivery: Room air
Patient hypoxic: no (95)
*Critical Care Note
Total Time (30-74mins, 75-104mins- exclusive of procedures): Not Applicable
ED Attending Note
-
Portions of this chart may have been created with voice recognition software.� Occasional wrong word or��sound alike� substitutions may have occurred due to the inherent limitations of voice recognition software.
Discharge Plan
Departure
Patient Disposition: Home (Routine Discharge)
Date of Disposition: 11/17/24
Time of Disposition: 18:02
Patient with high blood pressure during this ER visit?: Yes
Condition: Fair
Covid-19: Not Applicable
Discharge Problem:
Orthostatic syncope
Instructions: Syncope (Fainting) (DC)
Prescriptions:
No Action
carbidopa-levodopa 50-200 mg tablet extended release
1.5 tab PO HS
modafinil 200 mg Tablet
200 mg PO DAILY
Patient Comments:
per patient, daily in the morning
modafinil 100 mg Tablet
100 mg PO QPM
Patient Comments:
Per patient, takes medication at 3pm
escitalopram oxalate [Lexapro] 10 mg Tablet
10 mg PO DAILY
zyjhqvgpx-jvuuxvfc-fqhlvmdoqw 37.5-150-200 mg tablet
1 tab PO TID
cyanocobalamin (vitamin B-12) 1,000 mcg Tablet
1,000 mcg PO DAILY
therapeutic multivitamin Tablet
1 tab PO DAILY
ascorbic acid (vitamin C) [Vitamin C] 500 mg Tablet
500 mg PO DAILY
cholecalciferol (vitamin D3) [Vitamin D3] 10 mcg (400 unit) Tablet
10 mcg PO DAILY
bupropion HCl [Wellbutrin XL] 150 mg Tablet Extended Release 24 Hr
150 mg PO BID
oregano oil 1,500 mg Capsule
200 mg PO DAILY
coQ10 (ubiquinol) 100 mg Capsule
300 mg PO DAILY
rosuvastatin
5 mg PO DAILY
Rx Instructions:
pt got filled but never started as he came to hospital
midodrine 2.5 mg Tablet
2.5 mg PO BID@0800,1800 Qty: 60 0RF
Rx Instructions:
Hold if SBP>140
Referrals:
Amy Medina MD [Family Provider, Family Practice] - Follow up in 2-3 days
Activity Restrictions/Additional Instructions:
YOU ARE GOING TO MAKE CHANGES TO YOUR PARKINSONS MEDICATION THAT MAY HELP WITH YOUR DROP IN BLOOD PRESSURE
USE THE MIDODRINE INSTRUCTED
AVOID SUDDEN STANDING OR BENDING
STAY HYDRATED
YOU WERE GIVEN A DOSE OF MONUROL FOR SOME BACTERIA IN YOUR URINE
WE WILL CALL YOU IF YOU NEED A DIFFERENT ANTIBIOTIC
RETURN FO [facility].
Interventions
Interventions:
*Risk Screen - Suicide Last Done: 11/17/24 13:11
*General Assessment Last Done: 11/17/24 13:11
*Neglect/Abuse Screening Last Done: 11/17/24 18:33
*ED- Fall Risk Assessment Last Done: 11/17/24 18:33
*ED COVID-19 Vaccine History Last Done: 11/17/24 18:33
*Nursing Disposition Last Done: 11/17/24 18:33
ED- Cardiac Assessment Last Done: 11/17/24 15:17
ED- Neurological Assessment Last Done: 11/17/24 15:17
Discharge Date and Time
Discharge Date/Time: 11/17/24 18:34
Print Language: [email or web address]
[2024-11-17] MEDS: MONUROL 3 GM PO (18:03)
== END 2024-11-17 18:34 | disposition home or self-care (01) ==
LOC: EMR 13:10
PROVIDERS: Emergency Medicine; Physician Assistant; EMERGENCY PHYSICIAN Emergency Medicine; FAMILY PHYSICIAN Family Medicine
DX: I95.1 Orthostatic hypotension (principal); R03.0 Elevated blood-pressure reading, without diagnosis of hypertension; G20.A1 Parkinson's disease without dyskinesia, without mention of fluctuations; Z96.82 Presence of neurostimulator
CPT/HCPCS: 99284; 96360; 80053; 81003; 81015; 85025; 87086; 93005

== ENCOUNTER → 2025-03-11 09:53 | Outpatient (REF) | payer MEDICARE, BC, OTHER, SELFPAY | LOC: RST 09:53 | PROVIDERS: ATTENDING PHYSICIAN Family Medicine | DX: G20.A1 Parkinson's disease without dyskinesia, without mention of fluctuations (principal); R13.10 Dysphagia, unspecified | CPT/HCPCS: 74230; 92611 ==